=== PATIENT | female | born 1985 | race Caucasian/White ===

== ENCOUNTER 2017-01-18 08:04 | Inpatient (IN) ==
[2017-01-18] MEDS ORDERED: Metoclopramide 10 MG/2 ML VIAL IVP ONE (08:48)
[2017-01-18] MEDS ORDERED: Ringers Solution, Lactated 1,000 ML IVC ONE (08:48)
[2017-01-18] MEDS ORDERED: CeFAZolin Pre 2,000 MG/100 ML 2,000 MG/100 ML BAG IVPB ONE (08:48)
[2017-01-18] MEDS ORDERED: Famotidine 20 MG/2 ML VIAL IVP ONE (08:48)
[2017-01-18] MEDS ORDERED: Oxytocin 20 units/ LR 1000 mL 20 UNIT/1,000 ML BAG IVC ONE ×2 (08:48→12:36)
[2017-01-18] MEDS ORDERED: *HR* Morphine Sulfate/PF 5 MG/10 ML AMPUL ONE (08:54)
[2017-01-18] MEDS ORDERED: *HR* FentaNYL (PF) 100 MCG/2 ML VIAL ONE (08:54)
[2017-01-18] MEDS ORDERED: EPHEDrine 50 MG/ML VIAL ONE (08:55)
[2017-01-18] MEDS ORDERED: Ondansetron 4 MG/2 ML VIAL ONE (08:57)
[2017-01-18] MEDS ORDERED: *HR* Oxytocin 10 UNIT/ML VIAL IM ONE (08:57)
--- NOTE | 2017-01-18 09:24 | Anesthesia Evaluation PreOp ---
Date of Encounter: 01/18/17 Time of Encounter: 09:22 - Past History Planned Operation: repeat Cardiac History: Denies any Significant Hx Pulmonary History: Denies Any Significant HX TRIAL CONSULTANT History: Denies Any Significant HX Other Medical History: Denies Any Significant HX, Diabetes Type II (gestatial diabetes) Anesthesia History: No Prior Anesthetic Complications, Past Anesthesia (C- section x 1 2007, Hernia repair,) : Yes (39.3) Alcohol Use: none Medications and Allergies Vit No.124/Iron/FA [ Vitamin Tablet] 1 each PO DAILY #90 tablet 06/05/16 [Rx] Promethazine [Phenergan] 25 mg PO Q6HR PRN #16 tablet 06/05/16 [Rx] 3 Allergy/AdvReac Type Severity Reaction Status Date / Time No Known Allergies Allergy Verified 03/16/15 19:44 - Meds/Allergy Pre-op Review Medications Reviewed: Yes Allergies Reviewed: Yes Beta Blockers on Current Med List: No Anesthesia Results - Labs 01/18/17 09:15 pending Anesthesia Exam Height: 5'5" Weight: 149# NPO (# of Hours): MNoc - HEENT Pupil (Motor): Pupils equal, EOMI Mallampati: II Teeth: Normal Oral Opening: Greater than 3 - TRIAL CONSULTANT LOC: Oriented TRIAL CONSULTANT Motor: Normal RUE, Normal LUE, Normal RLE, Normal LLE, Normal Face TRIAL CONSULTANT Sensory: Normal: RUE, LUE, RLE, LLE, Face - Cardiac Rhythm: Regular Murmur: None - Pulmonary Breath Sounds: bilateral Clear Anesthesia Assess/Plan ASA Score: 2 Modified Staci Scale for Level of Consciousness: Cooperative, oriented, and tranquil Anesthetic Plan: Regional Monitoring Plan: Standard Monitors Recovery Plan: PACU Anes Supervising Prov Stmt: Pt seen/evaluated, r&B DIscussed, questions answered and consent obtained. Colin Garza MD
[2017-01-18 09:28] LABS: Basophils % 0.3 %; Eosinophils % 0.2 %; Hematocrit 35.8 % (35.3-44.9); Hemoglobin 11.9 g/dL (11.5-15.4); Immature Granulocytes % 0.8 % (0-4); Lymphocytes # 0.9 K/mcL (0.6-4.6); Lymphocytes % 10.1 %; Mean Corpuscular HGB Conc 33.2 g/dL (31.6-35.5); Mean Corpuscular Hemoglobin 29.8 pg (28.0-33.3); Mean Corpuscular Volume 89.5 fL (83.0-100.0); Monocytes # 0.5 K/mcL (0.0-1.3); Monocytes % 5.1 %; Neutrophils # 7.5 K/mcL (1.6-8.9); Platelet Count 182 K/mcL (140-400); Red Cell Distribution Width 13.1 % (11.5-14.5); Segmented Neutrophils % 83.5 %
[2017-01-18 09:35] LABS: Bilirubin,Urine Negative (Negative); Blood,Urine Small (Negative); Color,Urine Yellow (Yellow); Glucose,Urine (UA) Normal (Normal); Ketones,Urine 15 mg/dL (Negative); Leukocyte Esterase,Urine Small (Negative); Nitrite,Urine Negative (Negative); Protein,Urine Trace mg/dL (Neg-Trace); Specific Gravity,Urine 1.015 (1.010-1.025); Urobilinogen,Urine Normal (Normal)
[2017-01-18 09:38] LABS: Bacteria,Urine Many per hpf (None-Few); Hyaline Casts,Urine Few per lpf (None-Few); Squamous Epithelial Cell,Urine Many per lpf (None-Few)
[2017-01-18 09:39] LABS: Clarity,Urine Cloudy (Clear)
[2017-01-18 09:46] LABS: Amphetamine Screen,Urine Negative ng/mL (Cutoff=1000); Barbiturate Screen,Urine Negative ng/mL (Cutoff=200); Benzodiazepines Screen,Urine Negative ng/mL (Cutoff=200); Cannabinoid Screen,Urine Negative ng/mL (Cutoff = 50); Cocaine Screen,Urine Negative ng/mL (Cutoff= 300); Opiate Screen,Urine Negative ng/mL (Cutoff=300); Phencyclidine Screen,Urine Negative ng/mL (Cutoff=25)
--- NOTE | 2017-01-18 10:13 | OB/GYN History & Physical ---
Date of Encounter: 01/18/17 Time of Encounter: 10:00 History of Present Illness Chief complaint: Repeat Cesarian Section HPI: Ms. Best is a 31 year old female, , 39+3, presents to labor and delivery for repeat Cesarian section with Dr. Naidu. Pt reports good movement, no loss of fluid or spontaneous rupture of membranes, minimal contractions. Labs: Negative GBS. Rubella and Varicella immune. Negative serologies for HIV, Neisseria, Chlamydia. Reflex RPR Syphilis non-reactive. Blood type A positive. Past Med Surg Social Fam HX - Past Medical History Medical history: non-contributory Psychiatric history: no psych history - Social History Smoking Status: Never smoker Smokeless Tobacco Status: No Alcohol use: none Medications and Allergies Vit No.124/Iron/FA [ Vitamin Tablet] 1 each PO DAILY #90 tablet 06/05/16 [Rx] Promethazine [Phenergan] 25 mg PO Q6HR PRN #16 tablet 06/05/16 [Rx] 3 Allergy/AdvReac Type Severity Reaction Status Date / Time No Known Allergies Allergy Verified 03/16/15 19:44 Results Result Diagrams: 01/18/17 09:15 Abnormal lab results MPV 9.0 fL (9.4-12.4) L 01/18/17 09:15 Urine Clarity Cloudy (Clear) A 01/18/17 09:15 Urine Ketones 15 mg/dL (Negative) H 01/18/17 09:15 Urine Blood Small (Negative) H 01/18/17 09:15 Ur Leukocyte Esterase Small (Negative) H 01/18/17 09:15 Urine Microscopic RBC 5-15 per hpf (0-3) H 01/18/17 09:15 Urine Microscopic WBC 5-15 per hpf (0-3) H 01/18/17 09:15 Ur Squamous Epith Cells Many per lpf (None-Few) H 01/18/17 09:15 Urine Bacteria Many per hpf (None-Few) H 01/18/17 09:15 Ur Culture Indicated? YES (NO) A 01/18/17 09:15 All other labs normal. - Attending Attestation christos naidu md facog
[2017-01-18] MEDS ORDERED: Ringers Solution, Lactated 1,000 ML ONE (10:33)
[2017-01-18] MEDS ORDERED: Naloxone 0.4 MG/ML INJ IVP PRN (10:52)
[2017-01-18] MEDS ORDERED: *HR* HYDROmorphone (PF) 1 MG/ML SYRINGE IVP PRN ×2 (10:52→12:21)
[2017-01-18] MEDS ORDERED: Ondansetron 4 MG/2 ML VIAL IVP ONE (10:52)
[2017-01-18] MEDS ORDERED: Ringers Solution, Lactated 1,000 ML IVC SCH (11:00)
--- NOTE | 2017-01-18 12:05 | OB/GYN Procedure Note ---
Section - Date of procedure: 01/18/17 Preop diagnosis: desires repeat , desires sterilization Post-op diagnosis: same Procedure: repeat low transverse, bilateral tubal ligation Surgeon: Kwame Patel Estimated blood loss (cc): 500 Metal Ceiling Hanger: Nehal Holliday Anesthesiologist: Candelaria Blair Anesthesia Type: Spinal section complications: none Disposition: PACU Specimens: Right tube segment, Left tube segment - Infant (s) A Infant Delivery Date: 01/18/17 Infant Delivery Time: 11:06 Presentation: vertex Gender: Male Viability: Viable Pounds: 6 Ounces: 10 at 1 minute: 8 at 5 minutes: 8 Cord: nuchal cord, nuchal reduced - Narrative Narrative: Patient was taken to the operating room. After satisfactory spinal anesthesia was achieved, she was placed in supine position and Mata catheter inserted and prepped and draped in usual manner. After appropriate timeout, the abdomen was entered through a standard Maylard incision. The Lenora retractor was placed. The peritoneum overlying the lower uterine segment was incised in U-shaped fashion. The uterus was opened minimal fluid was noted. Head was delivered nuchal cord was relieved. The infant was delivered and handed to nursery staff for further evaluation. The placenta was removed. Uterine Incision was closed with 0 Monocryl in a single layer. Attention then turned to the fallopian tubes. The distal end of each fallopian tube was resected and sent to pathology for analysis. Pedicles ligated with 2-0 chromic. After assurance of hemostasis the abdomen was closed in standard fashion using 0 Vicryl in the fascia and 3-0 Monocryl in the skin. Sterile dressing was applied. Patient did well was taken to recovery room in satisfactory condition. Counts were correct.
[2017-01-18] MEDS ORDERED: *HR* Morphine 2 MG/ML SYRINGE IVP PRN (12:21)
--- NOTE | 2017-01-18 12:21 | Anesthesia Evaluation Post Op ---
Date of Encounter: 01/18/17 Time of Encounter: 12:20 - Vital Signs Vital Signs: 92/52 hr 90 sp02 100% on RA - Lungs Lungs: Clear Ascult./Percussion - Airway Airway: Non-obstructed - Cardiovascular Regular Rate, Baseline Rhythm - Mental Status Mental Status: Alert & Oriented, Answers Appropriately - Pain Pain Scale: 0 Pain Scale used: Numeric (1 - 10) - Nausea Vomiting Nausea Vomiting: Not Present - Hydration Hydration: Ice chips, Mata catheter - Discharge PostOp Status: Transfer Patient to floor
[2017-01-18] MEDS ORDERED: Ondansetron 4 MG/2 ML VIAL IVP PRN (13:21)
[2017-01-18] MEDS ORDERED: Metoclopramide 10 MG/2 ML VIAL IVP PRN (13:21)
[2017-01-18] MEDS: Ibuprofen 600 MG TABLET PO PRN ×2 (13:55→23:34)
[2017-01-18] MEDS: Oxytocin 20 units/ LR 1000 mL 20 UNIT/1,000 ML BAG IVC SCH ×2 (13:58→20:42)
[2017-01-18] MEDS ORDERED: Sennosides 8.6 MG TABLET PO PRN (21:00)
[2017-01-19] MEDS: Simethicone 80 MG TAB.CHEW PO PRN ×2 (03:36→18:37)
[2017-01-19 07:36] LABS: Basophils % 0.3 %; Eosinophils % 0.2 %; Hematocrit 26.2 % (35.3-44.9); Immature Granulocytes % 0.8 % (0-4); Immature Platelets 1.8 % (1.1-6.1); Lymphocytes % 9.7 %; Mean Corpuscular HGB Conc 33.6 g/dL (31.6-35.5); Mean Corpuscular Hemoglobin 30.6 pg (28.0-33.3); Mean Platelet Volume 9.6 fL (9.4-12.4); Monocytes # 0.5 K/mcL (0.0-1.3); Monocytes % 5.1 %; Neutrophils # 8.5 K/mcL (1.6-8.9); Platelet Count 172 K/mcL (140-400); Red Blood Count 2.88 M/mcL (3.82-4.97); Red Cell Distribution Width 13.2 % (11.5-14.5); Segmented Neutrophils % 83.9 %
[2017-01-19 07:42] LABS: Hemoglobin 8.8 g/dL (11.5-15.4)
[2017-01-19] MEDS ORDERED: [UNRECOGNIZED DRUG - REMARK] PO SCH (09:00)
[2017-01-19] MEDS: Ibuprofen 600 MG TABLET PO PRN (10:46)
[2017-01-19] MEDS: Prenatal Vit/FA 1 EACH TABLET PO SCH (10:47)
--- NOTE | 2017-01-19 10:51 | OB/GYN Progress Note ---
Date of Encounter: 01/19/17 Time of Encounter: 10:48 - Assessment and Plan (1) S/P Current Visit: Yes Status: Acute Doing well, cont. post care. (2) Anemia Current Visit: Yes Status: Acute Will encourage po fluids and will start iron at d/c. Qualifiers: Anemia type: other cause Qualified Code(s): D64.89 - Other specified anemias Subjective - Subjective Principal diagnosis: s/p Interval history: Doing well, s/p . Appropriate lochia and cramping. Ambulating and taking regular diet. Patient reports: appetite normal Funk: doing well Objective - Vital Signs Latest vital signs: Vital Signs Temp Pulse Resp BP Pulse Ox 01/19/17 10:09 99.1 F 81 16 102/62 01/19/17 03:35 97.7 F 79 16 107/72 96 01/18/17 23:30 98.3 F 79 16 103/69 97 01/18/17 20:10 98.6 F 74 16 105/64 98 01/18/17 17:30 98.1 F 75 16 107/61 01/18/17 16:26 97.5 F L 68 18 105/60 01/18/17 15:30 97.6 F 65 16 100/56 01/18/17 15:00 97.7 F 67 16 102/67 97 01/18/17 14:30 97.5 F L 66 16 97/59 99 Intake and Output 01/18/17 01/19/17 01/19/17 23:59 07:59 15:59 Intake Total 1000 / 1000 1800 / 1800 Output Total 1200 / 1200 200 / 200 Balance 1000 / 1000 600 / 600 -200 / -200 Intake: IV Fluids 1000 / 1000 1000 / 1000 Pitocin 20 unit In 1,000 ml @ 1000 / 1000 1000 / 1000 125 mls/hr IVC .Q8H IRON Rx#: [id number] Oral 0 / 0 800 / 800 Output: Urine 200 / 200 Catheter 1200 / 1200 Other: Stool Characteristics Normal for Patient Weight 62.8 kg Patient Weight 01/19/17 23:59 Weight 62.8 kg - Exam Lungs: bilateral: normal Chest: Normal S1, Normal S2 Extremities: Present: normal Incision: Present: normal, dressed - Labs Labs: Laboratory Results - last 24 hr 01/18/17 01/19/17 13:36 06:44 WBC 10.2 RBC 2.88 L Hgb 8.8 L D Hct 26.2 L MCV 91.0 MCH 30.6 MCHC 33.6 RDW 13.2 Plt Count 172 MPV 9.6 Immature Gran % 0.8 Seg Neutrophils % 83.9 Lymphocytes % 9.7 Monocytes % 5.1 Eosinophils % 0.2 Basophils % 0.3 Neutrophils # 8.5 Lymphocytes # 1.0 Monocytes # 0.5 Eosinophils # 0.0 Basophils # 0.0 Immature Plt Fraction 1.8 POC Glucose 93 H
[2017-01-19] MEDS: *HR* OxyCODONE/APAP 5/325 TABLET PO PRN ×2 (15:00→20:26)
[2017-01-20] MEDS: *HR* OxyCODONE/APAP 5/325 TABLET PO PRN (01:24)
[2017-01-20] MEDS: Simethicone 80 MG TAB.CHEW PO PRN ×2 (02:06→07:43)
--- NOTE | 2017-01-20 07:15 | Discharge Summary ---
Date of Encounter: 01/20/17 Time of Encounter: 07:10 - Discharge Diagnosis (1) S/P Priority: Primary Status: Acute - Discharge Medications Prescriptions: OxyCODONE/APAP 5/325 [Percocet 5/325 MG] 1 each PO Q4HR PRN 7 Days #42 tablet PRN Reason: Moderate pain 4-6 Simethicone [Gas-X] 80 mg PO TID PRN #15 tab.chew PRN Reason: Dyspepsia Home Medications: Vit No.124/Iron/FA [ Vitamin Tablet] 1 each PO DAILY #90 tablet 06/05/16 [Rx] Promethazine [Phenergan] 25 mg PO Q6HR PRN #16 tablet 06/05/16 [Rx] OxyCODONE/APAP 5/325 [Percocet 5/325 MG] 1 each PO Q4HR PRN 7 Days #42 tablet [Rx] Simethicone [Gas-X] 80 mg PO TID PRN #15 tab.chew 01/20/17 [Rx] Allergies/Adverse Reactions: 3 Allergy/AdvReac Type Severity Reaction Status Date / Time No Known Allergies Allergy Verified 03/16/15 19:44 Data Procedures and tests throughout hospitalization: Laboratory Tests 01/18/17 01/18/17 01/18/17 09:15 09:15 09:15 WBC 9.0 RBC 4.00 Hgb 11.9 Hct 35.8 MCV 89.5 MCH 29.8 MCHC 33.2 RDW 13.1 Plt Count 182 MPV 9.0 L Immature Gran % 0.8 Seg Neutrophils % 83.5 Lymphocytes % 10.1 Monocytes % 5.1 Eosinophils % 0.2 Basophils % 0.3 Neutrophils # 7.5 Lymphocytes # 0.9 Monocytes # 0.5 Eosinophils # 0.0 Basophils # 0.0 Immature Plt Fraction POC Glucose Urine Color Yellow Urine Clarity Cloudy A Urine pH 7.0 Ur Specific [place] 1.015 Urine Protein Trace Urine Glucose (UA) Normal Urine Ketones 15 H Urine Blood Small H Urine Nitrite Negative Urine Bilirubin Negative Urine Urobilinogen Normal Ur Leukocyte Esterase Small H Urine Microscopic RBC 5-15 H Urine Microscopic WBC 5-15 H Ur Squamous Epith Cells Many H Urine Bacteria Many H Hyaline Casts Few Ur Culture Indicated? YES A Urine Opiates Screen Negative Ur Barbiturates Screen Negative Ur Phencyclidine Scrn Negative Ur Amphetamines Screen Negative U Benzodiazepines Scrn Negative Urine Cocaine Screen Negative U Marijuana (THC) Screen Negative 01/18/17 01/19/17 13:36 06:44 WBC 10.2 RBC 2.88 L Hgb 8.8 L D Hct 26.2 L MCV 91.0 MCH 30.6 MCHC 33.6 RDW 13.2 Plt Count 172 MPV 9.6 Immature Gran % 0.8 Seg Neutrophils % 83.9 Lymphocytes % 9.7 Monocytes % 5.1 Eosinophils % 0.2 Basophils % 0.3 Neutrophils # 8.5 Lymphocytes # 1.0 Monocytes # 0.5 Eosinophils # 0.0 Basophils # 0.0 Immature Plt Fraction 1.8 POC Glucose 93 H Urine Color Urine Clarity Urine pH Ur Specific [place] Urine Protein Urine Glucose (UA) Urine Ketones Urine Blood Urine Nitrite Urine Bilirubin Urine Urobilinogen Ur Leukocyte Esterase Urine Microscopic RBC Urine Microscopic WBC Ur Squamous Epith Cells Urine Bacteria Hyaline Casts Ur Culture Indicated? Urine Opiates Screen Ur Barbiturates Screen Ur Phencyclidine Scrn Ur Amphetamines Screen U Benzodiazepines Scrn Urine Cocaine Screen U Marijuana (THC) Screen Labs on day of discharge: Labs from last 24 hours 01/19/17 06:44 WBC 10.2 RBC 2.88 L Hgb 8.8 L D Hct 26.2 L MCV 91.0 MCH 30.6 MCHC 33.6 RDW 13.2 Plt Count 172 MPV 9.6 Immature Gran % 0.8 Seg Neutrophils % 83.9 Lymphocytes % 9.7 Monocytes % 5.1 Eosinophils % 0.2 Basophils % 0.3 Neutrophils # 8.5 Lymphocytes # 1.0 Monocytes # 0.5 Eosinophils # 0.0 Basophils # 0.0 Immature Plt Fraction 1.8 Date of admission: 01/18/17 08:04 Primary care physician: evangelista Discharging clinician: Sharan Calle Anticipated date of discharge: 01/20/17 - Patient Status Disposition: Home, Self-Care Condition: Good Functional capacity at discharge: independent ambulation Overall status at discharge: patient is progressing back to baseline - Discharge Instructions Follow Up With: Kwame Patel MD [Partnered Physician] - - Diet and Activity Activity: increase activity as tolerated Diet: advance to your usual diet Hospital Course Procedures: section Reason for admission: section Delivery: section Episiotomy: none Laceration: none Other procedures: none complications: none Discharge diagnosis: IUP at term delivered Hospital course: Patient is a 31-year-old female who presented for primary section. Patient underwent a section without complications diet and activity was advanced hospital day #1 by day #2 patient was ready to go home. Her hemoglobin was low at 8.8 should be sent home on iron sulfate Percocet 5 mg #42 and simethicon. Patient will follow-up in the office in 2 weeks. Time Attestation: Total time spent providing and/or coordinating discharge services: - VTE Documentation of Mechanical Device: Intermittent pneumatic compression device Exam - Constitutional Vitals: Temp Pulse Resp BP Pulse Ox 98.1 F 97 16 105/69 98 01/19/17 20:25 01/19/17 20:25 01/19/17 20:25 01/19/17 20:25 01/19/17 20:25 General appearance IM: mild distress, A&O X 3 - Respiratory Respiratory exam: Present: CTAB - Cardiovascular Cardiovascular exam IM: Present: RRR - GI/Abdominal GI/Abdominal exam IM: normal bowel sounds Incision: normal, dry, intact - Rectal Rectal exam: deferred - Uterus Position: At Umbilicus
[2017-01-20] MEDS ORDERED: MOM Conc 10 ML UD.LIQ PO ONE (07:29)
[2017-01-20] MEDS: Prenatal Vit/FA 1 EACH TABLET PO SCH (07:43)
[2017-01-20] MEDS: Ibuprofen 600 MG TABLET PO PRN (07:45)
[2017-01-20 08:53] VITALS: BP 115/73
== END 2017-01-20 14:00 | disposition home or self-care (01) | DRG 540 ==
LOC: 1NENULAB 08:04 → 1NENUOBS 14:56
PROVIDERS: ADMIT Obstetrics & Gynecology; ATTEND Obstetrics & Gynecology